=== PATIENT | female | born 1980 | race African-American/Black ===

== ENCOUNTER 2016-07-30 16:44 | Emergency (ER) | payer OTHER ==
[~2016-07-30] VITALS: Ht 165.1 cm; Wt 130.2 kg
--- NOTE | ~2016-07-30 | EKG ---
[address] [place] [address] ELECTROCARDIOGRAM REPORT Name: RICH DURAND Room #: [facility]#: [id number] Admission: 07/30/16 Attend Phys: Discharge: 07/30/16 Date of : 78 Report #: [id number] THIS REPORT FOR: //name// [facility] ED Test Date: 2016-07-30 Test Time: 16:55:46 Pat Name: RICH DURAND Department: Room: Gender: F Mohs Surgeon: KATELYN : 1980 Requested By: Alvaro Singh Order Number: [id number] MD: Owen Valentin Measurements Intervals [place] Rate: 113 P: 44 PA: 170 QRS: 55 QRSD: 84 T: -52 QT: 344 QTc: 472 Interpretive Statements Sinus tachycardia Nonspecific T abnormalities, diffuse leads No previous ECG available for comparison Electronically Signed On 07-31-2016 7:25:43 CDT by Owen Valentin [email or web address] <ELECTRONICALLY SIGNED> By: Owen Valentin MD, [facility] 07/31/16 0725 1655 1655 Owen Valentin MD, FACC /EPI
[~2016-07-30 16:44] MED LIST: AMOXICILLIN500 M1 PO; FELODIPINE ER10 MG PO; HYDROCHLOROTHIA25 M2 GT; IBUPROFEN 600600 M1 PO; NORCO 5-325 TA1 EACH PO; PENICILLIN V P500 MG PO; PENICILLIN VK500 M1 PO; PERCOCET 5-3251 EACH PO; TOBREX5 ML OP; TRAMADOL 50 MG50 MG PO; VICODIN 5-5001 EACH PO
[2016-07-30] MEDS ORDERED: FELODIPINE 5 MG5 M1 PO (17:12)
[2016-07-30] MEDS ORDERED: HYDROCHLOROTHIA25 M2 PO (17:12)
[2016-07-30 17:17] LABS: BASOPHILS 2.4 % (0.0-2.0); EOSINOPHILS 1.6 % (0.0-3.0); HEMATOCRIT 42.2 % (37.0-47.0); HEMOGLOBIN 13.5 gm/dL (12.0-15.0); LYMPHOCYTES 26.3 % (24.0-44.0); MCH 24.3 pg (26.0-34.0); MCV 75.9 fL (80.0-100.0); MONOCYTES 4.7 % (1.0-8.0); PLATELET COUNT 420 thou/uL (150-400); RBC 5.56 mil/uL (4.20-5.00); RDW 15.5 % (10.5-14.5); WBC 9.3 thou/uL (4.0-11.0)
[2016-07-30 17:18] LABS: MANUAL DIFF NO
[2016-07-30 17:25] LABS: CALCIUM 9.2 mg/dL (8.5-10.1)
[2016-07-30 17:29] LABS: ALBUMIN 3.7 g/dL (3.4-5.0); TOTAL BILIRUBIN 0.4 mg/dL (<0.1-1.0); TOTAL PROTEIN 8.6 g/dL (6.4-8.2)
[2016-07-30 19:44] VITALS: BP 134/86
== END 2016-07-30 19:45 | disposition home or self-care (01) ==
LOC: ER 16:44
PROVIDERS: Emergency Medicine
DX: E87.6 Hypokalemia (principal); I10 Essential (primary) hypertension; Z90.49 Acquired absence of other specified parts of digestive tract

== ENCOUNTER 2016-10-01 18:05 | Emergency (ER) | payer OTHER ==
[~2016-10-01] VITALS: Ht 165.1 cm; Wt 135.2 kg
[~2016-10-01 18:05] MED LIST changes: +FELODIPINE 5 MG5 M1 PO; +HYDROCHLOROTHIA25 M2 PO
[2016-10-01] MEDS ORDERED: HYDROCHLOROTHIA25 M2 PO (18:29)
[2016-10-01] MEDS ORDERED: FELODIPINE 5 MG5 M1 PO (18:30)
[2016-10-01 19:20] VITALS: BP 140/98
== END 2016-10-01 19:20 | disposition home or self-care (01) ==
LOC: ER 18:05
DX: I10 Essential (primary) hypertension (principal); R51 Headache; R11.0 Nausea; F17.210 Nicotine dependence, cigarettes, uncomplicated; Z90.49 Acquired absence of other specified parts of digestive tract

== ENCOUNTER 2019-11-30 19:34 | Emergency (ER) | payer OTHER ==
[~2019-11-30] VITALS: Ht 167.6 cm; Wt 138.3 kg
[2019-11-30 20:22] LABS: ABSOLUTE NEUTROPHILS 6.2 thou/uL (1.4-8.2); BASOPHILS 0.8 % (0.0-2.0); EOSINOPHILS 3.3 % (0.0-3.0); HEMATOCRIT 38.6 % (37.0-47.0); HEMOGLOBIN 12.2 gm/dL (12.0-15.0); LYMPHOCYTES 30.9 % (24.0-44.0); MCH 24.3 pg (26.0-34.0); MCHC 31.7 g/dL (28.0-37.0); MCV 76.7 fL (80.0-100.0); MONOCYTES 5.5 % (1.0-8.0); PLATELET COUNT 413 thou/uL (150-400); POLYS 59.5 % (36.0-66.0); RBC 5.03 mil/uL (4.20-5.00); RDW 16.3 % (10.5-14.5); WBC 10.5 thou/uL (4.0-11.0)
[2019-11-30 20:28] LABS: ANION GAP 7 mmol/L (7-16); BUN 7 mg/dL (7-18); CALCIUM 8.8 mg/dL (8.5-10.1); CHLORIDE 99 mmol/L (98-107); CO2 30 mmol/L (21-32); CREATININE 0.7 mg/dL (0.6-1.0); GLUCOSE 96 mg/dL (74-106); POTASSIUM 3.2 mmol/L (3.5-5.1); SODIUM 136 mmol/L (136-145)
[2019-11-30 20:35] LABS: ALBUMIN 3.5 g/dL (3.4-5.0); LIPASE 69 U/L (73-393); SGOT 16 U/L (15-37); SGPT 18 U/L (30-65); TOTAL BILIRUBIN 0.2 mg/dL (0.2-1.0); TOTAL PROTEIN 8.1 g/dL (6.4-8.2); TROPONIN-I <0.06 ng/mL (<0.06)
[2019-11-30 22:03] VITALS: BP 164/97
--- NOTE | 2019-12-01 08:51 | EKG ---
[facility] [place] [address] ELECTROCARDIOGRAM REPORT Name: RICH DURAND Room #: [facility]#: [id number] Admission: 11/30/19 Attend Phys: Discharge: 11/30/19 Date of : 78 Report #: [id number] THIS REPORT FOR: cc: SARABJIT - [place] family physician/PCP SARABJIT - No family physician/PCP Owen Valentin MD [facility] THIS REPORT FOR: //name// [facility] ED Test Date: 2019-11-30 Test Time: 19:39:14 Pat Name: RICH DURAND Department: Room: Gender: Guest Request Runner: [facility] : 1980 Requested By: Ap Dunne Order Number: [id number] MD: Owen Valentin Measurements Intervals [place] Rate: 116 P: 67 SD: 181 QRS: 67 QRSD: 76 T: -12 QT: 331 QTc: 460 Interpretive Statements Sinus tachycardia Nonspecific ST and T wave abnormality Compared to ECG 10/14/2019 11:52:21 T-wave abnormality now present Electronically Signed On 12-01-2019 8:51:01 CDT by Owen Valentin [email or web address] <ELECTRONICALLY SIGNED> By: Owen Valentin MD, [facility] 12/01/19 0851 [id number] 38 Owen Valentin MD, [facility] /EPI
== END 2019-11-30 22:05 | disposition home or self-care (01) ==
LOC: ER 19:34
PROVIDERS: Emergency Medicine
DX: R07.89 Other chest pain (principal); R11.0 Nausea; I10 Essential (primary) hypertension; F17.210 Nicotine dependence, cigarettes, uncomplicated; Z90.49 Acquired absence of other specified parts of digestive tract; Z79.899 Other long term (current) drug therapy

== ENCOUNTER 2020-02-05 19:15 | Emergency (ER) | payer OTHER ==
[~2020-02-05] VITALS: Ht 160 cm; Wt 142.4 kg
[2020-02-05] MEDS ORDERED: FELODIPINE 5 MG5 M1 PO (19:59)
[2020-02-05] MEDS ORDERED: HYDROCHLOROTHIA25 M2 PO (19:59)
[2020-02-05 20:12] VITALS: BP 113/64
== END 2020-02-05 20:12 | disposition home or self-care (01) ==
LOC: ER 19:15
DX: I10 Essential (primary) hypertension (principal); F17.210 Nicotine dependence, cigarettes, uncomplicated; Z76.0 Encounter for issue of repeat prescription; Z90.49 Acquired absence of other specified parts of digestive tract

== ENCOUNTER 2020-10-20 02:12 | Emergency (ER) | payer OTHER ==
[~2020-10-20] VITALS: Ht 165.1 cm; Wt 138.3 kg
[2020-10-20 03:23] VITALS: BP 219/84
[2020-10-20] MEDS ORDERED: ULTRAM 50MG TAB50 MG PO (04:29)
== END 2020-10-20 05:29 | disposition home or self-care (01) ==
LOC: ER 02:12
DX: M25.561 Pain in right knee (principal); I10 Essential (primary) hypertension

== ENCOUNTER 2021-02-07 18:53 | Emergency (ER) | payer OTHER ==
[~2021-02-07] VITALS: Ht 162.6 cm; Wt 138.3 kg
[~2021-02-07 18:53] MED LIST changes: +ULTRAM 50MG TAB50 MG PO
[2021-02-07] MEDS ORDERED: HYDROCHLOROTHIA25 M1 PO (20:47)
[2021-02-07] MEDS ORDERED: NORVASC5 MG PO (20:47)
[2021-02-07 20:52] VITALS: BP 133/86
== END 2021-02-07 20:52 | disposition home or self-care (01) ==
LOC: ER 18:53
DX: I16.0 Hypertensive urgency (principal); I10 Essential (primary) hypertension; F17.210 Nicotine dependence, cigarettes, uncomplicated; Z90.49 Acquired absence of other specified parts of digestive tract